=== PATIENT | male | born 1960 | race Caucasian/White ===

== ENCOUNTER 2021-12-26 10:47 | Emergency (ER) | payer MEDICARE, SELFPAY ==
[2021-12-26 11:00] VITALS: BP 177/100; PULSE 83; RESP 18; TEMP 36.7; O2SAT 98; BMI 35.9
--- NOTE | 2021-12-26 11:19 | [facility].EDUTC ---
[facility] [place] Disposition Clinical Impression: Rash and nonspecific skin eruption Disposition: Home, Self-Care Condition on Discharge: Good Instructions: Psoriasis, DI for Psoriasis, Triamcinolone Topical Additional Instructions: Make sure to avoid hot water on skin Use topical medication as prescribed Return if any signs of infection, swelling warmth, drainage Follow up with Family Doctor on Thursday if no improvement FOllow up with Dermatology if no improvement or any worsening of symptoms Straight to ER if any life threatening symptoms Prescriptions: Doxycycline Monohydrate [Doxycycline [place] 100mg Tab] 100 mg PO Q12 7 Days #14 tab Transmission Status: Received by [facility] Triamcinolone Acetonide 1 applic TP BID #80 gm Transmission Status: Received by [facility] Referrals: Jeana Francisco [Primary Care Provider] - As needed Time of Disposition: 11:42 Medical Decision Making - Rob Inquiry Pt receiving controlled substance: No Rob was queried for this patient: No Vital Signs: 12/26/21 11:00 12/26/21 11:34 Temperature 98.0 F 98.0 F Temperature Source Oral Pulse Rate 83 Pulse Rate [Left Brachial] 83 Respiratory Rate 18 18 Blood Pressure 177/100 H Blood Pressure [Left Arm] 177/100 H Blood Pressure Mean [Left Arm] 125 Blood Pressure Source [Left Arm] Automatic Cuff Blood Pressure Position [Left Arm] Sitting 02 Sat by Pulse Oximetry 98 Oxygen Delivery Method Room Air [facility] [place] HPI - General Stated complaint: Rash on arms Time Seen by Provider: 12/26/21 11:19 Mode of Arrival: Ambulatory Source of Information: Patient Limitations: No Limitations Description of Symptoms (Recalled from Triage Doc. by RN): PATIENT C/O RASH TO RIGHT ARM SINCE 12/22. HE REPORTS HE WAS CLEARING BRUSH AND BELIEVES HE GOT INTO POISON MARYCRUZ OR OAK HEENT Symptoms (Recalled from RN notes): No Resp Symptoms (Recalled from RN notes): No Skin Symptoms (Recalled from RN notes): Yes MS Symptoms (Recalled from RN notes): No Functional Status (Recalled from RN notes): WNL - History of Present Illness Provider Complaint: Patient states that he was clearing brush and thinks he may have got into poison marycruz or poison oak but rash is not itching States that he does have history of psoriasis but this is not like his usual breakouts with that States that he takes injectsion for psoriasis but hasnt taken it due to he was worried it may be infected - Related Data Home Medications Medication Instructions Recorded Confirmed Clobetasol Propionate 15 gm TOPICAL DIRECTED 12/04/17 12/04/17 Levothyroxine Sodium 25 mcg PO DAILY 12/04/17 12/04/17 [Levothyroxine 25mcg (0.025mg) Tab] Montelukast Sodium [Montelukast 10 mg PO DAILY 12/04/17 12/04/17 10mg Tab] Omeprazole [Omeprazole 20mg 20 mg PO DAILY 12/04/17 12/04/17 Capsule] Rivaroxaban [Xarelto] 20 mg PO DAILY 12/04/17 12/04/17 Testosterone Cypionate 200 mg SQ DIRECTED 12/04/17 12/04/17 Ustekinumab [Stelara] 90 mg SQ DIRECTED 12/04/17 12/04/17 Zolpidem Tartrate [Ambien 10mg 10 mg PO DAILY 12/04/17 12/04/17 tablet] Previous Rx's Medication Instructions Recorded Sulfamethoxazole/Trimethoprim 1 each PO BID #20 tab 12/04/17 [Bactrim DS tablet] Doxycycline Monohydrate 100 mg PO Q12 7 Days #14 tab 12/26/21 [Doxycycline [place] 100mg Tab] Triamcinolone Acetonide 1 applic TP BID #80 gm 12/26/21 Allergies Allergy/AdvReac Type Severity Reaction Status Date / Time infliximab [From REMICADE] Allergy Severe S-DIFF. Verified 12/04/17 14:35 BREATHING morphine [MORPHINE] Allergy Severe S-SWELLS-OR Verified 12/04/17 14:35 AL/THROAT Penicillins Allergy Verified 12/26/21 11:17 - Worker's Comp Is this a Worker's Comp case?: No [facility] History - Hepatitis A Screen Attestation statement:: This patient has been screened for Hepatitis A risk factors. I have reviewed the patient's past medical history: Yes [facility]
[2021-12-26 11:34] VITALS: BP 177/100; PULSE 83; RESP 18; TEMP 36.7; O2SAT 98
== END 2021-12-26 11:47 | disposition home or self-care (01) ==
PROVIDERS: Emergency Provider Nurse Practitioner; PCP Family Medicine
DX: R21 Rash and other nonspecific skin eruption (principal); Z88.0 Allergy status to penicillin
CPT/HCPCS: 99212; G0463